=== PATIENT | male | born 1970 | race Caucasian/White ===

== ENCOUNTER 2018-05-16 09:58 | Emergency (ER) | payer OTHER ==
[~2018-05-16] VITALS: Ht 172.7 cm; Wt 96.6 kg
[2018-05-16 10:00] VITALS: BP 161/98
--- NOTE | 2018-05-16 10:29 | NUR ---
PT AMBULATES TO BED 6
--- NOTE | 2018-05-16 10:52 | NUR ---
PER PATIENT,TIP RT. INDEX FINGER CUT OFF WITH HAMMER. BANDAGED BY PATIENT. NO ACTIVE BLEEDING.DENIES HX:,DENIES MEDS. VSS; PATIENT POSITIONED FOR COMFORT; HOB ELEVATED; BEDRAILS UP X1; BED DOWN. ER MD MADE AWARE OF PT STATUS.
--- NOTE | 2018-05-16 11:14 | NUR ---
XRAY AT BEDSIDE
[2018-05-16] MEDS ORDERED: BACITRACIN OINT 500 UNITS/GM PKT TP ONE (11:35)
[2018-05-16 12:21] VITALS: BP 161/98
== END 2018-05-16 12:22 | disposition home or self-care (01) ==
LOC: MED 09:58
DX: S61.300A Unspecified open wound of right index finger with damage to nail, initial encounter (principal); W23.0XXA Caught, crushed, jammed, or pinched between moving objects, initial encounter; Y93.89 Activity, other specified; Y92.69 Other specified industrial and construction area as the place of occurrence of the external cause; Y99.0 Civilian activity done for income or pay
CPT/HCPCS: 29130; 73140; 99283; Q0092